=== PATIENT | female | born 1960 | race Caucasian/White ===

== ENCOUNTER 2025-07-07 08:59 | Emergency (ER) | payer MEDICARE, OTHER ==
[~2025-07-07] VITALS: Ht 165.1 cm; Wt 66.0 kg
--- NOTE | ~2025-07-07 | EKG ---
[facility] [address] [place], [place] [address] Draft EK completed, results pending confirmation PATIENT NAME: ANDRES VIEIRA Electrocardiogram DATE OF : 58 PHYSICIAN: PRELIMINARY REPORT #: [id number] REPORT IS CONFIDENTIAL AND NOT TO BE RELEASED WITHOUT AUTHORIZATION
--- NOTE | ~2025-07-07 | EKG ---
[facility] [address] [place], [place] [address] Draft EK completed, results pending confirmation PATIENT NAME: ANDRES VIEIRA Electrocardiogram DATE OF : 58 PHYSICIAN: PRELIMINARY REPORT #: [id number] REPORT IS CONFIDENTIAL AND NOT TO BE RELEASED WITHOUT AUTHORIZATION
[~2025-07-07 08:59] MED LIST: ACETAMINOPHEN500 MG PO; BACTRIM DS TAB1 EACH PO; BENADRYL25 MG PO; CLOPIDOGREL75 MG PO; ULTRAM50 MG PO
[2025-07-07 09:10] LABS: BASOPHILS 0.6 % (0.1-1.2); EOSINOPHILS 0.7 % (0.7-5.8); LYMPHOCYTES 29.8 % (19.3-51.7); MCH 33.1 PG (25.6-32.2); MCHC 34.0 g/dL (32.2-35.5); MCV 97.2 fL (79.4-94.8); MONOCYTES 7.3 % (4.7-12.5); NEUTROPHILS 61.2 % (34.0-71.1); RBC 3.96 M/uL (3.93-5.22)
[2025-07-07] MEDS ORDERED: LOSARTAN POTASS25 MG PO (09:11)
[2025-07-07] MEDS ORDERED: ROSUVASTATIN CA20 MG PO (09:11)
[2025-07-07] MEDS ORDERED: SERTRALINE HCL25 MG PO (09:11)
[2025-07-07] MEDS ORDERED: AMLODIPINE BESYL5 MG PO (09:11)
[2025-07-07] MEDS ORDERED: ASPIRIN 81 MG CHEW PO ONE (09:15)
[2025-07-07] MEDS ORDERED: NITROGLYCERIN 0.4 MG SUBL SL PRN (09:15)
[2025-07-07 09:30] LABS: INR 0.99 (0.80-1.30); PROTIME 12.7 Sec (11.2-14.2)
[2025-07-07 09:39] LABS: ALT (SGPT) 7.0 U/L (14-59); AST (SGOT) 20.0 U/L (15-37); GLOMERULAR FILTRATION RATE,EST 97.0 mL/min (>60); PROTEIN, TOTAL 8.1 g/dL (6.4-8.2); UREA NITROGEN 7.0 mg/dL (7-18)
[2025-07-07 11:07] VITALS: BP 149/82
== END 2025-07-07 11:07 | disposition home or self-care (01) ==
LOC: ED 08:59
PROVIDERS: Emergency Medicine
DX: R94.31 Abnormal electrocardiogram [ECG] [EKG] (principal); I10 Essential (primary) hypertension; F17.200 Nicotine dependence, unspecified, uncomplicated; Z79.899 Other long term (current) drug therapy; Z79.02 Long term (current) use of antithrombotics/antiplatelets; Z88.5 Allergy status to narcotic agent
CPT/HCPCS: 36415; 71045; 80053; 83880; 84484; 85025; 85610; 93005; 93010; 99285-25; A9270